=== PATIENT | female | born 1960 | race Caucasian/White ===

== ENCOUNTER 2019-09-08 21:45 | Emergency (ER) | payer BC, SELFPAY ==
[2019-09-08 21:46] VITALS: PULSE 65; RESP 18; TEMP 37.1; O2SAT 98
[2019-09-08 23:44] VITALS: BP 166/75; PULSE 79; RESP 16; O2SAT 97
--- NOTE | 2019-09-09 00:48 | ED.LOWEXIN ---
HPI - Extremity Injury (Lower) General Chief Complaint: Extremity Injury, Lower Stated Complaint: toenail injury Time Seen by Provider: 09/09/19 00:48 History of Present Illness HPI Narrative: Patient presents with a right great toe injury. She tripped and the nail is loosened and pointing upward. There is no longer bleeding. The pain is mild at this time. She does not want pain medicine. There is similar injury on the left foot previously. At that time they remove the entire toenail. Related Data Home Medications Medication Instructions Recorded Confirmed cholecalciferol (vitamin D3) 125 5,000 unit PO DAILY 02/27/19 mcg (5,000 unit) capsule citalopram 20 mg tablet 20 mg PO DAILY 02/27/19 metoprolol succinate 50 mg 50 mg PO DAILY 02/27/19 tablet,extended release 24 hr multivitamin 1 tablet PO DAILY 02/27/19 epinephrine 0.3 mg/0.3 mL 0.3 mg IM ONCE 06/29/19 injection, auto-injector Allergies Allergy/AdvReac Type Severity Reaction Status Date / Time iodine Allergy Mild RASH Verified 09/08/19 21:58 Penicillins Allergy Mild RASH Verified 09/08/19 21:58 acetaminophen Allergy Hives Verified 09/08/19 22:00 azithromycin Allergy Hives Verified 09/08/19 22:01 cefadroxil Allergy Hives Verified 09/08/19 22:02 doxycycline Allergy Hives Verified 09/08/19 22:02 metronidazole Allergy Hives Verified 09/08/19 22:02 phenylpropanolamine Allergy Hives Verified 09/08/19 22:02 Review of Systems Review of Systems: Narrative: Review of systems she has not been sick otherwise. All systems reviewed & are unremarkable except as noted in HPI and below PMFSH Past Medical History Medical History Endometrial polyp (~07/2012) Social History Social History Smoking status: Never smoker Alcohol intake: current Exam Narrative: Exam Narrative: GENERAL: Well-appearing, well-nourished, and in no acute distress. HEAD: Normocephalic, atraumatic. EYES: PERRLA and EOMI. ENT: Nares clear, no rhinorrhea or epistaxis. Mucous membranes moist. NECK: Supple. CHEST: Clear to auscultation. No respiratory distress. HEART: Regular rate and rhythm. No murmur heard. Normal peripheral pulses. ABDOMEN: Soft, nontender, nondistended, normal active bowel sounds. EXTREMITIES: Normal range of motion. No edema. Right great toenail is projecting upward. Bleeding has stopped. SKIN: Warm, dry, no rash. NEURO: No focal deficits. Alert and oriented x3. PSYCH: Normal mood and affect. Course Vital Signs Vital signs: Vital Signs Temperature 98.8 F 09/08/19 21:46 Pulse Rate 65 09/08/19 21:46 Respiratory Rate 18 09/08/19 21:46 Pulse Oximetry 98 09/08/19 21:46 Temperature 98.8 F 09/08/19 21:46 Pulse Rate 79 09/08/19 23:44 Respiratory Rate 16 09/08/19 23:44 Blood Pressure 166/75 H 09/08/19 23:44 Pulse Oximetry 97 09/08/19 23:44 Discharge Plan Discharge Clinical Impression: Injury of toenail Qualifiers: Encounter type: initial encounter Laterality: right Qualified Code(s): S99.921A - Unspecified injury of right foot, initial encounter Patient Disposition: Home, Self-Care Condition: Stable Instructions: Nail Avulsion (ED), Nail Removal (ED) Additional Instructions: Soak the foot to soften the toenail and treatment with the scissors so that is not protruding. Let it grow out. Prescriptions: New hydrocodone-acetaminophen [[place]] 5-325 mg tablet 1 tablet PO Q4H PRN (Reason: pain) Qty: 10 RF: 0 No Action epinephrine 0.3 mg/0.3 mL auto-injector 0.3 mg IM ONCE RF: 0 metoprolol succinate 50 mg tablet extended release 24 hr 50 mg PO DAILY RF: 0 citalopram 20 mg tablet 20 mg PO DAILY RF: 0 multivitamin Tablet 1 tablet PO DAILY RF: 0 cholecalciferol (vitamin D3) 5,000 unit capsule 5,000 unit PO DAILY RF: 0 Follow-up/Referrals: Thee Urbano MD [Phys
--- NOTE | 2019-09-09 00:50 | PC.NURSE ---
Pt left room stated she would return when we were not so busy. MD Gomes assessed Patient's toe in hallway and gave care instructions before d/c.
== END 2019-09-09 00:55 | disposition home or self-care (01) ==
PROVIDERS: Emergency Provider Emergency Medicine
DX: S99.921A Unspecified injury of right foot, initial encounter (principal); W18.40XA Slipping, tripping and stumbling without falling, unspecified, initial encounter
CPT/HCPCS: 99283

== ENCOUNTER → 2020-06-11 09:15 | Outpatient (CLI) | payer BC, SELFPAY ==
[2020-06-11 22:47] LABS: SARS-CoV-2 RNA PCR Negative
== END ==
PROVIDERS: PCP Family Medicine; Visit Provider Obstetrics & Gynecology
DX: Z01.812 Encounter for preprocedural laboratory examination (principal); Z20.822 Contact with and (suspected) exposure to COVID-19
CPT/HCPCS: C9803; U0003; U0005

== ENCOUNTER 2020-06-12 09:00 | Outpatient (CLI) | payer BC, SELFPAY ==
[2020-06-12 09:25] LABS: Hemoglobin 13.2 g/dL (12.0-15.0)
[2020-06-12 10:02] LABS: Anion Gap 6 mmol/L (8-16); Blood Urea Nitrogen 25 mg/dL (7-17); Calcium 9.4 mg/dL (8.4-10.2); Carbon Dioxide 32 mmol/L (22-30); Chloride 102 mmol/L (98-107); Estimated Glomerular Filt Rate > 60; Glucose 105 mg/dL (65-105); Sodium 140 mmol/L (137-145)
[2020-06-12 10:50] LABS: Potassium 4.4 mmol/L (3.4-5.0)
== END 2020-06-12 09:01 | disposition home or self-care (01) ==
LOC: ANHSURGERY 09:02
PROVIDERS: Anesthesiology; PCP Family Medicine; Visit Provider Obstetrics & Gynecology
DX: Z79.899 Other long term (current) drug therapy (principal); I10 Essential (primary) hypertension; N95.0 Postmenopausal bleeding
CPT/HCPCS: 36415; 80048; 85014; 85018

== ENCOUNTER 2020-06-13 10:57 | Outpatient (CLI) | payer BC, SELFPAY | END 2020-06-13 10:58 | disposition home or self-care (01) | LOC: ANHCOVIDVC 10:58 | PROVIDERS: PCP Family Medicine | DX: Z23 Encounter for immunization (principal) | CPT/HCPCS: 0001A; 91300 ==

== ENCOUNTER 2020-06-14 01:49 | Day surgery (SDC) | payer BC, SELFPAY ==
--- NOTE | 2020-06-11 11:55 | HP_ITS ---
This report was moved to the correct visit, [id number] on 06/18/20. Original report was signed by Kali Montague MD on 06/11/20 1157. H&P: HPI History of Present Illness Date/Time: 06/11/20 11:55 Chief Complaint: postmenopausal bleeding Narrative: Pema Rothman is a 60 year old female 10 years postmenopausal is admitted for hysteroscopy dilatation curettage secondary to postmenopausal bleeding. She has not taken hormones nor blood thinners. Risks and benefits of the procedure reviewed in full. She received the [employer] handout entitled hysteroscopy as well as dilatation curettage respectively. She asked to proceed Review of Systems Review of Systems: All systems reviewed & are unremarkable except as noted in HPI and below PMFSH Past Medical History Medical History Endometrial polyp (~07/2012) Family History Family History Mother Hypertension Family history of elevated blood lipids Family history of malignant neoplasm of breast in first degree relative Father Diabetes mellitus Hypertension Family history of elevated blood lipids Family history of coronary artery disease Grandparent Diabetes mellitus Hypertension Sibling Hypertension Family history of elevated blood lipids Social History Social History Smoking status: Never smoker Alcohol intake: current Meds Home Medications and Allergies Home Medications Medication Instructions Recorded Confirmed Type cholecalciferol (vitamin D3) 125 5,000 unit PO DAILY 02/27/19 01/23/20 History mcg (5,000 unit) capsule multivitamin 1 tablet PO DAILY 02/27/19 01/23/20 History epinephrine 0.3 mg/0.3 mL 0.3 mg IM ONCE 06/29/19 01/23/20 History injection, auto-injector hydrochlorothiazide 25 mg tablet 25 mg PO DAILY #30 tablet 03/04/20 Rx losartan 100 mg tablet 100 mg PO DAILY 03/06/20 History citalopram 20 mg tablet See Rx Instructions .ROUTE 03/22/20 Rx .COMPLEX #30 tablet metoprolol succinate 50 mg See Rx Instructions .ROUTE 05/03/20 Rx tablet,extended release 24 hr .COMPLEX #30 tablet Allergies Allergy/AdvReac Type Severity Reaction Status Date / Time iodine Allergy Mild RASH Verified 01/23/20 15:30 Penicillins Allergy Mild RASH Verified 01/23/20 15:30 acetaminophen Allergy Hives Verified 01/23/20 15:30 azithromycin Allergy Hives Verified 01/23/20 15:30 cefadroxil Allergy Hives Verified 01/23/20 15:30 doxycycline Allergy Hives Verified 01/23/20 15:30 metronidazole Allergy Hives Verified 01/23/20 15:30 phenylpropanolamine Allergy Hives Verified 01/23/20 15:30 Exam Const: General: no acute distress Eyes: General: appearance normal, both eyes and all related structures Neck: Neck: supple and no JVD Thyroid: thyroid normal Resp: Effort & Inspection: normal respiratory effort Auscultation: clear to auscultation bilaterally Cardio: Rate: regular rate Rhythm: regular rhythm GI: Inspection: non-distended GI Palp: Yes Soft to palpation, No Tenderness to palpation present (GI) and No Guarding due to palpation present (GI) Auscultation: normal bowel sounds : General: Yes bladder normal to palpation External Female Exam: normal external appearance Speculum Exam - Vagina: normal vaginal discharge and No vaginal bleeding Speculum Exam - Cervix: nontender Bimanual exam- vagina & uterus: bladder normal to palpation and N
[2020-06-11 13:37] VITALS: BMI 39.7
--- NOTE | 2020-06-14 06:33 | WPDHPUPDATE1 ---
History and Physical Update Update Date/Time: 06/14/20 06:33 History and Physical has been reviewed, including an updated exam of the patient. There are NO changes in the patient's condition. Risks, benefits, and alternatives have been discussed and questions answered. Patient agrees to proceed with procedure.
--- NOTE | 2020-06-14 07:46 | SUR.PREOP ---
patient called to report blood in urine and pain, reported this to Dr Tracey and he stated ok to proceed with procedure today.
--- NOTE | 2020-06-14 08:51 | WPDANESEPPF ---
Anes - Initial Pre Proc Eval Procedure: Operation Date: 06/14/20 11:15 Proposed Procedures p Hysteroscopy Dilation and Curettage - Kali Perry MD Date/Time: 06/14/20 08:51 Surgeon: Kali Perry MD Pre Op Diagnosis: Postmenopausal bleeding Patient Data Age: 60 Gender: F Height: 1.63 m Weight: 105 kg Allergies Allergy/AdvReac Type Severity Reaction Status Date / Time phenylpropanolamine Allergy Intermediate HEART Verified 06/14/20 09:27 RACING acetaminophen Allergy Mild Rash Verified 06/14/20 09:27 azithromycin Allergy Mild Hives Verified 06/14/20 09:27 cefadroxil Allergy Mild Hives Verified 06/14/20 09:27 doxycycline Allergy Mild Hives Verified 06/14/20 09:27 iodine Allergy Mild RASH Verified 06/14/20 09:27 metronidazole Allergy Mild Hives Verified 06/14/20 09:27 Penicillins Allergy Mild RASH Verified 06/14/20 09:27 lisinopril AdvReac Mild Nausea Verified 06/14/20 09:27 Home Medications Medication Instructions Recorded Confirmed Type cholecalciferol (vitamin D3) 125 5,000 unit PO DAILY 02/27/19 06/14/20 History mcg (5,000 unit) capsule multivitamin 1 tablet PO DAILY 02/27/19 06/14/20 History epinephrine 0.3 mg/0.3 mL 0.3 mg IM ONCE 06/29/19 06/11/20 History injection, auto-injector hydrochlorothiazide 25 mg tablet 25 mg PO DAILY #30 tablet 03/04/20 06/14/20 Rx losartan 100 mg tablet 100 mg PO DAILY 03/06/20 06/14/20 History citalopram 20 mg tablet See Rx Instructions .ROUTE 03/22/20 06/14/20 Rx .COMPLEX #30 tablet metoprolol succinate 50 mg See Rx Instructions .ROUTE 05/03/20 06/14/20 Rx tablet,extended release 24 hr .COMPLEX #30 tablet albuterol sulfate [Proventil HFA] 1 inh INHALATION QID PRN 06/11/20 06/11/20 History hydrocodone-acetaminophen 1 tablet PO Q6H PRN #14 tablet 06/14/20 Rx Patient hx anesthesia problems: none Family hx anesthesia problems: none PMFSH Past Medical History Medical History (Updated 06/14/20 @ 08:54 by Donavan Valentine MD) Depression Endometrial polyp (~07/2012) Essential (primary) hypertension Metabolic syndrome Mixed hyperlipidemia Obesity Family History Family History Mother Hypertension Family history of elevated blood lipids Family history of malignant neoplasm of breast in first degree relative Father Diabetes mellitus Hypertension Family history of elevated blood lipids Family history of coronary artery disease Grandparent Diabetes mellitus Hypertension Sibling Hypertension Family history of elevated blood lipids Social History Social History Smoking packs per day: 0 Smoking cigarettes per day: 0.0 Smoking status: Former smoker Tobacco type: cigarettes Smoking end date: 04/05/77 Alcohol intake: current Drinks per week: 1 Substance use: never Living arrangements: with family Gender identity (if verbalized by the patient): Female Sexual Orientation (if Verbalized by the Patient): Straight or Heterosexual Spiritual care concerns: No Anes - Eval Final PreProcedure Day of Procedure 06/14/20 08:51 Patient weight: obese Heart: regular rate and rhythm Lungs: clear to auscultation and normal air movement Airway: Mallampati scale class II Neurological: alert and oriented Last oral intake: >/= 8 hours ASA classification: III Emergent: no Anesthetic plan: proceed Anesthesia type and monitoring: general GIVS and LMA Informed Consent: The patient's anesthetic plan and its attendant risks and benefits were discussed with the patient/family/POA. Questions were solicited and answers provided to the satisfaction of the patient/family/POA.
[2020-06-14 09:39] VITALS: BP 125/81; PULSE 65; RESP 16; TEMP 36.3; O2SAT 100
[2020-06-14] MEDS: LACTATED RINGERS 1,000 ML 30 ML IV CONT (09:53)
[2020-06-14] MEDS: ceFAZolin 2 GM/D5W 50 ML 2 GM/50 ML BAG IVPB (10:34)
[2020-06-14 10:35] VITALS: BP 126/80; PULSE 59; RESP 16; O2SAT 98
[2020-06-14] MEDS: LIDOCAINE HCL 1% LOCAL INJ 20 ML VIAL 50 ML INFILTRATE (10:48)
[2020-06-14 10:54] VITALS: BP 98/61; PULSE 62; RESP 16; O2SAT 96
--- NOTE | 2020-06-14 10:55 | PM.PROC ---
Procedure Note - Detailed Date of procedure: 06/14/20 Pre-op diagnosis: Postmenopausal bleeding Surgeon: Kali Perry MD Postop diagnosis: Post menopausal bleeding Procedure: Hysteroscopy/dilatation and curettage Anesthesia: IV sedation and local Findings: Uterus sounded 8cm. Some small blood clots were seen. No evidence of definitive pathology. Complications: None Description of procedure: The patient was prepped and draped in normal sterile fashion placed in the dorsal lithotomy position. Under excellent IV sedation weighted speculum placed posterior fornix of vagina. Anterior lip of the cervix grasped with a single-tooth tenaculum and 2.5cc of 1% xylocaine anesthesia placed at 2, 4 8, 10:00 a.m. of the cervix. Uterus sounded 8cm. Serial dilatation with fragmented dilators performed. This was followed by passage of the 5mm visualizing hysteroscope. Normal saline was used as visualizing medium. Some small old bloody areas were seen and some clot but no definitive abnormalities. Each fallopian tube os could be seen. The uterus was then scraped over the entire 360? removing a minimal amount of tissue. The patient was awakened. All sponge, needle, instrument counts were correct. There were no immediate complications
[2020-06-14 11:10] VITALS: BP 115/74; PULSE 60; RESP 16; O2SAT 96
[2020-06-14 11:40] VITALS: BP 128/57; PULSE 55; RESP 16
== END 2020-06-14 12:05 | disposition home or self-care (01) ==
PROVIDERS: PCP Family Medicine; Visit Provider Obstetrics & Gynecology
PROC: 0U5B8ZZ Destruction of Endometrium, Via Natural or Artificial Opening Endoscopic (ICD-10-PCS; CPT 58563; principal; 2020-06-14 11:15)
DX: N95.0 Postmenopausal bleeding (principal); N84.0 Polyp of corpus uteri; I10 Essential (primary) hypertension; E78.2 Mixed hyperlipidemia; E88.81 Metabolic syndrome and other insulin resistance; F32.9 Major depressive disorder, single episode, unspecified; E66.9 Obesity, unspecified; Z68.39 Body mass index [BMI] 39.0-39.9, adult; Z87.891 Personal history of nicotine dependence
CPT/HCPCS: 58558; 88305; A9270; J0690; J2704; J3010; J7120

== ENCOUNTER 2020-07-04 10:52 | Outpatient (CLI) | payer BC, SELFPAY ==
--- NOTE | 2020-06-11 11:55 | PM.IMHP ---
H&P: HPI History of Present Illness Date/Time: 06/11/20 11:55 Chief Complaint: postmenopausal bleeding Narrative: Pema Rothman is a 60 year old female 10 years postmenopausal is admitted for hysteroscopy dilatation curettage secondary to postmenopausal bleeding. She has not taken hormones nor blood thinners. Risks and benefits of the procedure reviewed in full. She received the [employer] handout entitled hysteroscopy as well as dilatation curettage respectively. She asked to proceed Review of Systems Review of Systems: All systems reviewed & are unremarkable except as noted in HPI and below PMFSH Past Medical History Medical History Endometrial polyp (~07/2012) Family History Family History Mother Hypertension Family history of elevated blood lipids Family history of malignant neoplasm of breast in first degree relative Father Diabetes mellitus Hypertension Family history of elevated blood lipids Family history of coronary artery disease Grandparent Diabetes mellitus Hypertension Sibling Hypertension Family history of elevated blood lipids Social History Social History Smoking status: Never smoker Alcohol intake: current Meds Home Medications and Allergies Home Medications Medication Instructions Recorded Confirmed Type cholecalciferol (vitamin D3) 125 5,000 unit PO DAILY 02/27/19 01/23/20 History mcg (5,000 unit) capsule multivitamin 1 tablet PO DAILY 02/27/19 01/23/20 History epinephrine 0.3 mg/0.3 mL 0.3 mg IM ONCE 06/29/19 01/23/20 History injection, auto-injector hydrochlorothiazide 25 mg tablet 25 mg PO DAILY #30 tablet 03/04/20 Rx losartan 100 mg tablet 100 mg PO DAILY 03/06/20 History citalopram 20 mg tablet See Rx Instructions .ROUTE 03/22/20 Rx .COMPLEX #30 tablet metoprolol succinate 50 mg See Rx Instructions .ROUTE 05/03/20 Rx tablet,extended release 24 hr .COMPLEX #30 tablet Allergies Allergy/AdvReac Type Severity Reaction Status Date / Time iodine Allergy Mild RASH Verified 01/23/20 15:30 Penicillins Allergy Mild RASH Verified 01/23/20 15:30 acetaminophen Allergy Hives Verified 01/23/20 15:30 azithromycin Allergy Hives Verified 01/23/20 15:30 cefadroxil Allergy Hives Verified 01/23/20 15:30 doxycycline Allergy Hives Verified 01/23/20 15:30 metronidazole Allergy Hives Verified 01/23/20 15:30 phenylpropanolamine Allergy Hives Verified 01/23/20 15:30 Exam Const: General: no acute distress Eyes: General: appearance normal, both eyes and all related structures Neck: Neck: supple and no JVD Thyroid: thyroid normal Resp: Effort & Inspection: normal respiratory effort Auscultation: clear to auscultation bilaterally Cardio: Rate: regular rate Rhythm: regular rhythm GI: Inspection: non-distended GI Palp: Yes Soft to palpation, No Tenderness to palpation present (GI) and No Guarding due to palpation present (GI) Auscultation: normal bowel sounds : General: Yes bladder normal to palpation External Female Exam: normal external appearance Speculum Exam - Vagina: normal vaginal discharge and No vaginal bleeding Speculum Exam - Cervix: nontender Bimanual exam- vagina & uterus: bladder normal to palpation and No Cervical tenderness present OB/external & speculum: No vaginal bleeding Skin: General skin exam: no rashes or lesions noted Extrem: General: normal to inspection and no edema Psych: Mental Status: mental status grossly normal Affect: normal affect Assessment and Plan Additional Plan impression: Postmenopausal bleeding Plan: Hysteroscopy / dilatation curettage
== END 2020-07-04 10:53 | disposition home or self-care (01) ==
LOC: ANHCOVIDVC 10:52
PROVIDERS: PCP Family Medicine
DX: Z23 Encounter for immunization (principal)
CPT/HCPCS: 0002A; 91300

== ENCOUNTER → 2021-04-09 15:06 | Outpatient (CLI) | payer BC, SELFPAY ==
--- NOTE | ~2021-04-09 | MM_ITS ---
EXAMINATION: MM screening bree BI w baljeet HISTORY: Screening mammogram, family history of breast cancer in her mother. TECHNIQUE: Craniocaudal and mediolateral oblique 3-D tomosynthesis images were obtained and synthetic 2-D images were generated. CAD analysis was submitted and interpreted. COMPARISON: 11/03/2017, 10/19/2016, 10/25/2013 BREAST PARENCHYMAL COMPOSITION: There are scattered areas of fibroglandular density. FINDINGS: There is no evidence of suspicious mass, calcification, or architectural distortion to sugg est malignancy in either breast. There has been no suspicious interval change. IMPRESSION: 1. No mammographic evidence of malignancy. 2. Recommend routine screening mammography in one year. BI-RADS Category 1: Negative Reviewed, dictated and finalized at location A. [facility]
== END ==
PROVIDERS: PCP Family Medicine; Visit Provider Family Medicine
DX: Z12.31 Encounter for screening mammogram for malignant neoplasm of breast (principal)
CPT/HCPCS: 77063; 77067

== ENCOUNTER → 2021-08-05 15:51 | Outpatient (CLI) | payer BC, SELFPAY ==
--- NOTE | ~2021-08-05 | US_ITS ---
EXAMINATION: US soft tissue lower back DATE: 08/05/2021 16:05 INDICATION: Palpable localized swelling, mass or lump at the mid left back TECHNIQUE: Multiple grayscale and Doppler ultrasound images of the region of concern at the mid left back were obtained. COMPARISON: None FINDINGS: 7.0 x 6.5 x 1.8 cm flattened hypoechoic ovoid mass in the deep subcutaneous tissues at the region of concern with similar echogenicity and echotexture as the more superficial subcutaneous fat. No other abnormal masses or fluid collections identified. IMPRESSION: 1. 7.0 x 6.5 x 1.8 cm subcutaneous mass with appearance consistent with and statistically most likely to represent a lipoma. Reviewed, dictated and finalized at location A. IMPRESSION: 1. 7.0 x 6.5 x 1.8 cm subcutaneous mass with appearance consistent with and sta tistically most likely to represent a lipoma.
== END ==
PROVIDERS: PCP Family Medicine; Visit Provider Family Medicine
DX: R22.2 Localized swelling, mass and lump, trunk (principal)
CPT/HCPCS: 76705

== ENCOUNTER 2021-12-16 01:00 | Day surgery (SDC) | payer BC, SELFPAY ==
[2021-12-02 14:42] VITALS: BMI 40.4
--- NOTE | 2021-12-15 14:03 | WPDANESEPPF ---
Anes - Initial Pre Proc Eval Procedure: Operation Date: 12/16/21 09:30 Proposed Procedures p Screening Colonoscopy - Adithya Bond MD Date/Time: 12/15/21 14:03 Surgeon: Adithya Bond MD Pre Op Diagnosis: family hx of colon polyps Patient Data Age: 61 Gender: F Height: 1.63 m Weight: 107 kg Allergies Allergy/AdvReac Type Severity Reaction Status Date / Time phenylpropanolamine Allergy Intermediate HEART Verified 12/16/21 08:20 RACING acetaminophen Allergy Mild Rash Verified 12/16/21 08:20 azithromycin Allergy Mild Hives Verified 12/16/21 08:20 cefadroxil Allergy Mild Hives Verified 12/16/21 08:20 doxycycline Allergy Mild Hives Verified 12/16/21 08:20 iodine Allergy Mild RASH Verified 12/16/21 08:20 metronidazole Allergy Mild Hives Verified 12/16/21 08:20 Penicillins Allergy Mild RASH Verified 12/16/21 08:20 lisinopril AdvReac Mild Nausea Verified 12/16/21 08:20 Home Medications Medication Instructions Recorded Confirmed Type cholecalciferol (vitamin D3) 125 5,000 unit PO DAILY 02/27/19 12/02/21 History mcg (5,000 unit) capsule multivitamin 1 tablet PO DAILY 02/27/19 12/02/21 History cyclobenzaprine 5 mg tablet 5 mg PO TID PRN muscle spasm #20 06/12/21 12/02/21 Rx tabs albuterol sulfate 90 mcg/actuation 2 inh inhalation QID PRN 10/23/21 12/02/21 Rx aerosol inhaler (Proventil HFA) Bronchodilation #8.5 grams epinephrine 0.3 mg/0.3 mL 0.3 mg (0.3 mL) IM ONCE #1 ea 10/23/21 12/02/21 Rx injection, auto-injector hydrochlorothiazide 25 mg tablet 25 mg PO DAILY #90 tabs 10/23/21 12/02/21 Rx losartan 100 mg tablet 100 mg PO DAILY #90 tabs 10/23/21 12/02/21 Rx citalopram 20 mg tablet See Rx Instructions .Route 10/30/21 12/02/21 Rx .COMPLEX #30 tabs sodium,potassium,mag sulfates 17.5 See Rx Instructions PO .COMPLEX 11/05/21 12/02/21 Rx gram-3.13 gram-1.6 gram oral soln #354 mL (Suprep Bowel Prep Kit) metoprolol succinate 50 mg See Rx Instructions .Route 11/24/21 12/02/21 Rx tablet,extended release 24 hr .COMPLEX #30 tabs Patient hx anesthesia problems: none Family hx anesthesia problems: none Results Review: All pre-operative results and documents have been reviewed as part of the pre-operative evaluation. [facility] Past Medical History Medical History (Updated 12/15/21 @ 14:03 by Parker Conn DO) Depression Endometrial polyp (~07/2012) Essential (primary) hypertension Metabolic syndrome Mixed hyperlipidemia Obesity BONI (obstructive sleep apnea) CPAP Seizure Surgical History Surgical History History of torn meniscus of right knee surgery date was July 11 2020 Family History Family History Mother Hypertension Family history of elevated blood lipids Family history of malignant neoplasm of breast in first degree relative Father Diabetes mellitus Hypertension Family history of elevated blood lipids Family history of coronary artery disease Grandparent Diabetes mellitus Hypertension Sibling Hypertension Family history of elevated blood lipids Social History Social History Smoking packs per day: 0 Smoking cigarettes per day: 0.0 Smoking status: Never smoker Tobacco type: cigarettes Alcohol intake: current Drinks per week: 1 Substance use: never Substance use type: does not use Living arrangements: with family Gender identity (if verbalized by the patient): Female Sexual Orientation (if Verbalized by the Patient): Straight or Heterosexual Spiritual care concerns: No Anes - Eval Final PreProcedure Day of Procedure 12/15/21 14:03 Patient weight: morbidly obese Heart: regular rate and rhythm Lungs: clear to auscultation Airway: Mallampati scale class II Neurological: alert and oriented Last oral intake: >/= 8 hours ASA classification: I
[2021-12-16 08:21] VITALS: BP 132/79; PULSE 63; RESP 18; TEMP 36.1; O2SAT 97
[2021-12-16] MEDS: LACTATED RINGERS 1,000 ML 150 ML IV CONT (08:30)
--- NOTE | 2021-12-16 08:39 | PM.IMHP ---
H&P: HPI History of Present Illness Date/Time: 12/16/21 08:39 Chief Complaint: Neoplasia screening. Narrative: This is a 61-year-old white female patient presents for screening colonoscopy. Patient reports her current weight appetite bowel movements are normal. Patient is family history is significant for grandparents with colon polyps. Parents brothers sisters have not been identified with colon polyps. Patient reports her bowel habits are normal with no bleeding or pain. Review of Systems Review of Systems: Review of systems noncontributory. [facility] Past Medical History Medical History (Updated 12/15/21 @ 14:03 by Parker Conn DO) Depression Endometrial polyp (~07/2012) Essential (primary) hypertension Metabolic syndrome Mixed hyperlipidemia Obesity BONI (obstructive sleep apnea) CPAP Seizure Surgical History Surgical History History of torn meniscus of right knee surgery date was July 11 2020 Family History Family History Mother Hypertension Family history of elevated blood lipids Family history of malignant neoplasm of breast in first degree relative Father Diabetes mellitus Hypertension Family history of elevated blood lipids Family history of coronary artery disease Grandparent Diabetes mellitus Hypertension Sibling Hypertension Family history of elevated blood lipids Social History Social History Smoking packs per day: 0 Smoking cigarettes per day: 0.0 Smoking status: Never smoker Tobacco type: cigarettes Alcohol intake: current Drinks per week: 1 Substance use: never Substance use type: does not use Living arrangements: with family Gender identity (if verbalized by the patient): Female Sexual Orientation (if Verbalized by the Patient): Straight or Heterosexual Spiritual care concerns: No Meds Home Medications and Allergies Home Medications Medication Instructions Recorded Confirmed Type cholecalciferol (vitamin D3) 125 5,000 unit PO DAILY 02/27/19 12/02/21 History mcg (5,000 unit) capsule multivitamin 1 tablet PO DAILY 02/27/19 12/02/21 History cyclobenzaprine 5 mg tablet 5 mg PO TID PRN muscle spasm #20 06/12/21 12/02/21 Rx tabs albuterol sulfate 90 mcg/actuation 2 inh inhalation QID PRN 10/23/21 12/02/21 Rx aerosol inhaler (Proventil HFA) Bronchodilation #8.5 grams epinephrine 0.3 mg/0.3 mL 0.3 mg (0.3 mL) IM ONCE #1 ea 10/23/21 12/02/21 Rx injection, auto-injector hydrochlorothiazide 25 mg tablet 25 mg PO DAILY #90 tabs 10/23/21 12/02/21 Rx losartan 100 mg tablet 100 mg PO DAILY #90 tabs 10/23/21 12/02/21 Rx citalopram 20 mg tablet See Rx Instructions .Route 10/30/21 12/02/21 Rx .COMPLEX #30 tabs sodium,potassium,mag sulfates 17.5 See Rx Instructions PO .COMPLEX 11/05/21 12/02/21 Rx gram-3.13 gram-1.6 gram oral soln #354 mL (Suprep Bowel Prep Kit) metoprolol succinate 50 mg See Rx Instructions .Route 11/24/21 12/02/21 Rx tablet,extended release 24 hr .COMPLEX #30 tabs Allergies Allergy/AdvReac Type Severity Reaction Status Date / Time phenylpropanolamine Allergy Intermediate HEART Verified 12/16/21 08:20 RACING acetaminophen Allergy Mild Rash Verified 12/16/21 08:20 azithromycin Allergy Mild Hives Verified 12/16/21 08:20 cefadroxil Allergy Mild Hives Verified 12/16/21 08:20 doxycycline Allergy Mild Hives Verified 12/16/21 08:20 iodine Allergy Mild RASH Verified 12/16/21 08:20 metronidazole Allergy Mild Hives Verified 12/16/21 08:20 Penicillins Allergy Mild RASH Verified 12/16/21 08:20 lisinopril AdvReac Mild Nausea Verified 12/16/21 08:20 Vital Signs Vital Signs - 24 hr 12/16/21 08:21 Temperature 97 F L Pulse Rate 63 Respiratory Rate 18 Blood Pressure 132/79 Pulse Oximetry 97 Oxygen Delivery Room Air Exam
[2021-12-16 09:20] VITALS: BP 122/67; PULSE 56; RESP 19; O2SAT 95
[2021-12-16 09:30] VITALS: BP 128/76; PULSE 50; RESP 21; O2SAT 98
[2021-12-16 09:40] VITALS: BP 154/89; PULSE 54; RESP 18; O2SAT 98
== END 2021-12-16 09:48 | disposition home or self-care (01) ==
PROVIDERS: PCP Family Medicine; Visit Provider Internal Medicine Gastroenterology
PROC: 0DJD8ZZ Inspection of Lower Intestinal Tract, Via Natural or Artificial Opening Endoscopic (ICD-10-PCS; CPT 45378; principal; 2021-12-16 09:30)
DX: Z12.11 Encounter for screening for malignant neoplasm of colon (principal); K64.8 Other hemorrhoids; F32.A Depression, unspecified; I10 Essential (primary) hypertension; E78.2 Mixed hyperlipidemia; G47.33 Obstructive sleep apnea (adult) (pediatric); E88.81 Metabolic syndrome and other insulin resistance; Z79.51 Long term (current) use of inhaled steroids; Z83.71 Family history of colonic polyps; E66.01 Morbid (severe) obesity due to excess calories; Z68.41 Body mass index [BMI] 40.0-44.9, adult
CPT/HCPCS: 45378; J2704; J7120

== ENCOUNTER 2023-07-30 10:32 | Outpatient (CLI) | payer BC, SELFPAY ==
--- NOTE | ~2023-07-30 | CT_ITS ---
EXAMINATION: CT abdomen pelvis wo con DATE: 07/30/2023 11:12 INDICATION: Right lower quadrant abdominal pain. TECHNIQUE: Computed tomography (CT) of the abdomen and pelvis was performed without intravenous contr ast. Automated exposure control and iterative reconstruction technique were employed. The dose-length product was 1082.40 mGy-cm. COMPARISON: None. FINDINGS: The visualized portions of the lung bases and show minimal atelectasis. No pleural effusion . The heart size is normal. No pericardial effusion. There is diffuse hepatic steatosis. The gallblad harrison, spleen, pancreas, and left adrenal gland are normal. There is a 13 mm mass of fat in right adren al gland, consistent with a myelolipoma. There are peripelvic cysts in the kidneys measuring up to 2. 8 cm on the left. There is no urolithiasis. There is a subcutaneous lipoma posterior to the spine amy tered to the left of midline. There are no dilated loops of bowel. The appendix is normal. There are no pathologically enlarged lymph nodes. There is no free intraperitoneal fluid. There is mild thoraci c spondylosis and moderate lumbar spondylosis. IMPRESSION: 1. Diffuse hepatic steatosis. Reviewed, dictated and finalized at location A.
--- NOTE | ~2023-07-30 | XR_ITS ---
XR abdomen/kub 1V 07/30/2023 10:48 INDICATION: Flank pain TECHNIQUE: KUB COMPARISON: None FINDINGS: Bowel gas pattern is normal. There is no evidence of free air, mass, organomegaly, ascites or obstruction. No abnormal calculi are seen. The bones appear intact. IMPRESSION: 1: No acute abdominal abnormality identified. Reviewed, dictated and finalized at location B.
== END 2023-07-30 10:33 ==
PROVIDERS: PCP Family Medicine; Visit Provider Family Medicine
DX: R10.31 Right lower quadrant pain (principal); K76.0 Fatty (change of) liver, not elsewhere classified
CPT/HCPCS: 74018; 74176

== ENCOUNTER 2024-09-20 11:36 | Outpatient (CLI) | payer BC, SELFPAY ==
--- NOTE | ~2024-09-20 | MM_ITS ---
EXAMINATION: MM screening bree BI w baljeet HISTORY: Screening TECHNIQUE: Craniocaudal and mediolateral oblique 3-D tomosynthesis images were obtained and synthetic 2-D images were generated. CAD analysis was submitted and interpreted. COMPARISON: Comparison to multiple prior studies sequentially, with oldest reviewed study dated 10/19. BREAST PARENCHYMAL COMPOSITION: Not dense: There are scattered areas of fibroglandular density. FINDINGS: There is no evidence of suspicious mass, calcification, or architectural distortion to sugg est malignancy in either breast. There has been no suspicious interval change. IMPRESSION: 1. No mammographic evidence of malignancy. 2. Recommend routine screening mammography in one year. BI-RADS Category 1: Negative Reviewed, dictated and finalized at location A.
== END 2024-09-20 11:37 | disposition home or self-care (01) ==
LOC: MICIMG 11:37
PROVIDERS: PCP Family Medicine; Visit Provider Family Medicine
DX: Z12.31 Encounter for screening mammogram for malignant neoplasm of breast (principal)
CPT/HCPCS: 77063; 77067